=== PATIENT | male | born 1980 | race American Indian/Alaskan Native ===

== ENCOUNTER 2018-09-24 01:21 | Inpatient (IN) | payer MEDICAID ==
--- NOTE | 2018-09-24 02:12 | C.PDOC ---
History Of Present Illness 37 year old male presents to the ED c/o feeling depressed associated with SI with a plan for the past couple months. Patient reports symptoms worsened today. Patient had a plan to overdose with heroin. Patient has prior history of heroin, cocaine and alcohol abuse. Patient reports having previous suicide attempt. Patient denies HI, hallucinations, injury, fall, trauma. Time Seen by Provider: 09/24/18 01:48 Chief Complaint (Nursing): Psychiatric Evaluation History Per: Patient History/Exam Limitations: no limitations Onset/Duration Of Symptoms: Days Current Symptoms Are (Timing): Still Present Suicide/Self Injury Attempted (Context): Ingestion Modifying Factor(s): Alcohol, Narcotics, Cocaine Associated Symptoms: Depression, Suicidal Thoughts, Suicidal Plan Recent travel outside of the [place]: No Additional History Per: Patient Past Medical History Reviewed: Historical Data, Nursing Documentation, Vital Signs Vital Signs: Last Vital Signs Temp 98.6 F 09/24/18 01:38 Pulse 79 09/24/18 01:38 Resp 20 09/24/18 01:38 BP 122/79 09/24/18 01:38 Pulse Ox 100 09/24/18 01:38 - Medical History PMH: Depression Surgical History: No Surg Hx Family History: States: Unknown Family Hx - Social History Hx Alcohol Use: No Hx Substance Use: No - Immunization History Hx Tetanus Toxoid Vaccination: No Hx Influenza Vaccination: No Review Of Systems Constitutional: Negative for: Fever, Chills Eyes: Negative for: Vision Change Cardiovascular: Negative for: Chest Pain Respiratory: Negative for: Cough, Shortness of Breath Gastrointestinal: Negative for: Nausea, Vomiting, Abdominal Pain Skin: Negative for: Rash Neurological: Negative for: Weakness, Numbness Psych: Positive for: Depression, Suicidal ideation Physical Exam - Physical Exam Appears: Non-toxic, No Acute Distress, Other (flat affect) Skin: Normal Color, Warm, Dry Head: Atraumatic, Normacephalic Eye(s): bilateral: Normal Inspection Neck: Normal ROM, Supple Chest: Symmetrical Cardiovascular: Rhythm Regular Respiratory: Normal Breath Sounds, No Rales, No Rhonchi, No Wheezing Gastrointestinal/Abdominal: Soft, No Tenderness, No Guarding, No Rebound Extremity: Normal ROM, No Tenderness, No Swelling Neurological/Psych: Oriented x3, Normal Speech, Normal Cognition Gait: Steady ED Course And Treatment - Laboratory Results Result Diagrams: 09/24/18 02:12 09/24/18 02:12 O2 Sat by Pulse Oximetry: 100 (ON RA) Pulse Ox Interpretation: Normal Progress Note: Plan: - Labs. - UA. - Crisis evala. Patient was medically cleared, seen by crisis. Patient was admitted under Dr. Hopkins. 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 - Scribe Statement The provider has reviewed the documentation as recorded by the Scribe Parrish Mcneill All medical record entries made by the Scribe were at my direction and personally dictated by me. I have reviewed the chart and agree that the record accurately reflects my personal performance of the history, physical exam, medical decision making, and the department course for this patient. I have also personally directed, reviewed, and agree with the discharge instructions and disposition. Decision To Admit - Pt Status Changed To: Hospital Disposition Of: Inpatient - Admit Certification Admit to Inpatient:: After my assessment, the patient will require hospitalization for at least two midnights. This is because of the severity of symptoms shown, intensity of services needed, and/or the medical risk in this patient being treated as an outpatient. - InPatient: Physician Admission Certification: I certify that this patient requires 2 or more midnights of care for the following reason:: will need more than 2 days of admission - . Bed Request Type: Detox Admitting Physician: Shivam Hopkins Patient Diagnosis: Alcohol abuse, Opiate dependence, Cocaine abuse, Depression
[2018-09-24 02:16] LABS: BASO # 0.1 K/uL (0.0-0.2); BASO % 0.9 % (0.0-2.0); EOS # 0.2 K/uL (0.0-0.7); EOS % 2.3 % (0.0-4.0); HEMOGLOBIN 13.9 g/dL (12.0-18.0); LYMPH # 2.7 K/uL (1.0-4.3); LYMPH % 36.5 % (20.0-40.0); MEAN CELL VOLUME 86.9 fL (80.0-94.0); MEAN CORPUSCULAR HEMOGLOBIN 28.5 pg (27.0-31.0); MEAN CORPUSCULAR HGB CONC 32.8 g/dL (33.0-37.0); MEAN PLATELET VOLUME 9.1 fL (7.2-11.7); MONO # 1.1 K/uL (0.0-0.8); MONO % 14.2 % (0.0-10.0); NEUT # 3.4 K/uL (1.8-7.0); NEUT % 46.1 % (50.0-75.0); NRBC % 0.1 % (0.0-2.0); RBC 4.89 Mil/uL (4.40-5.90); RED CELL DISTRIBUTION WIDTH 14.6 % (11.5-14.5); WHITE BLOOD COUNT 7.4 K/uL (4.8-10.8)
[2018-09-24 02:20] LABS: SQUAMOUS EPITHIAL < 1 /hpf (0-5); URINE AMORPHOUS SEDIMENT RARE /ul (<OCC); URINE BACTERIA RARE (<OCC); URINE BILIRUBIN NEGATIVE (NEGATIVE); URINE BLOOD NEGATIVE (NEGATIVE); URINE CLARITY Clear (Clear); URINE COLOR Yellow (YELLOW); URINE GLUCOSE (UA) NORMAL (Normal); URINE LEUKOCYTE ESTERASE NEG Leu/uL (Negative); URINE PROTEIN 1+ mg/dL (NEGATIVE)
[2018-09-24 02:28] LABS: ALB/GLOB RATIO 1.3 (1.0-2.1); ALBUMIN 4.2 g/dL (3.5-5.0); ALT/SGPT 150 U/L (21-72); AST/SGOT 211 U/L (17-59); BLOOD UREA NITROGEN 13 mg/dL (9-20); CALCIUM 8.9 mg/dl (8.6-10.4); GFR NON-AFRICAN AMERICAN > 60
[2018-09-24 02:31] LABS: BARBITURATES, UR NEGATIVE (NEGATIVE); BENZODIAZEPINES, UR NEGATIVE (NEGATIVE); PHENCYCLIDINE, UR NEGATIVE (NEGATIVE)
[2018-09-24 02:33] LABS: OPIATES, UR POSITIVE (NEGATIVE)
[2018-09-24 03:45] VITALS: RESP 18
--- NOTE | 2018-09-24 04:19 | PCM.BM ---
<David Herrera - Last Filed: 09/24/18 04:18> Treatment Plan Problems - Problems identified on initial assessmt potential for opiates withdrawal Date Initiated: 09/24/18 Time Initiated: 04:19 Assessment reference: NA Status: Active Treatment assets and liabiliti Patient Assests: cooperative, ADL independent, negotiates basic needs, cognitively intact Patient Liabilities: substance abuse - Milieu Protocol Maintain good personal hygiene: daily Encourage regular showers, daily Remind patient to perform daily oral care, daily Assist patient to perform ADL's Maintain personal safety: every shift Educate patient to report safety concerns to staff, every shift Monitor environment for contraband/sharps Medication safety: Monitor for expected outcome, potential side effects: every shift, Assess barriers to learning: every shift, Assess readiness for medication education: every shift <Scotty Saunders - Last Filed: 09/25/18 14:08> - Diagnosis (1) Opiate dependence Status: Acute Interventions: 09/24/18 14:08 * Assess 7x/week regarding severity of withdrawal * Educate regarding risks, benefits, side effects and alternatives of medications * Use Motivational Interviewing for abstinence * Use CBT for relapse prevention * Medication management for withdrawal symptoms * Encourage medication assisted treatment *
--- NOTE | 2018-09-24 13:36 | PCM.PSYCH ---
Initial Psychiatric Evaluation - Initial Psychiatric Evaluation Type of Admission: Voluntary Legal Status: Capacity Chief Complaint (in patient's own words): "I need detox" History of Present Illness and Precipitating Events: Patient seen, chart reviewed, case discussed Patient is a 37-year-old single, unemployed -[place] male with no children who lives with a friend. The patient started using injecting heroin and smoking cocaine 10 years ago. The patient uses 10 bags of heroin and one $20 bag of cocaine per day and his last use was yesterday. The patient denies the use alcohol, marijuana, or other pills but has smoked 1 pack per day for the past 5 years. The patient has been to detox 6-7 times and rehab 2-3 times in the past. The patient was treated with Narcan for an overdose in 2017. The patient denies any family history of alcohol or drug use. The patient attempted to commit suicide one year ago and was hospitalized for a few weeks. The patient has felt depressed for the past month and contemplated suicide one week ago but currently denies any suicidal ideations. It is not clear if he had attempted or not 1 week ago, but he now agrees to follow safety plan. Past Psych History: Depression with SI Past Medical History: Hepatitis C - got treatment Family Psych History: denies Current Medications: Active Medications Generic Name Dose Route Start Last Admin Trade Name Freq PRN Reason Stop Dose Admin Clonidine HCl 0.1 mg 09/24/18 03:53 Catapres PO Q6 PRN withdrawal symptoms Dicyclomine HCl 10 mg 09/24/18 05:27 Bentyl PO Q6 PRN Muscle spasm Hydroxyzine HCl 25 mg 09/24/18 03:52 Atarax PO Q6 PRN Anxiety Ibuprofen 600 mg 09/24/18 05:26 Motrin Tab PO Q6 PRN Pain, moderate (4-7) Mirtazapine 15 mg 09/24/18 22:00 Remeron PO HS KARLA Trazodone HCl 50 mg 09/24/18 05:25 Desyrel PO HS PRN Insomnia Past Psychiatric History - Past Psychiatric History Previous Treatment History: Intensive Outpatient Pertinent Medical Hx (Current Medical&Sleep Prob, Allergies): Allergies Allergy/AdvReac Type Severity Reaction Status Date / Time No Known Allergies Allergy Verified 09/24/18 01:36 No Known Home Med 11/23/16 Review of Systems - Neurological Neurological: UNREMARKABLE - Psychiatric Psychiatric: Abnormal Sleep Pattern, Anhedonia, Anxiety, Depression (mild to moderate), Difficulty Concentrating. absent: Hallucinations, Homicidal Ideation, Paranoia, Suicidal Ideation Mental Status Examination - Personal Presentation Personal Presentation: Looks stated age - Affect Affect: Constricted - Motor Activity Motor Activity: Calm - Reliability in Providing Information Reliability in Providing Information: Good - Speech Speech: Organized - Mood Mood: Depressed (mild), Anxious - Formal Thought Process Formal Thought Process: No Impairment - Cognitive Functions Orientation: Person, Place, Situation, Time Sensorium: Alert Attention/Concentration: Attentive Estimate of Intelligence: Average Judgement: Intact, as evidence by: Insight regarding need for hospitalization Memory: Recent intact, as evidence by: Ability to recall events of the day, Remote intact, as evidenced by: Abilit to recall sig. life events - Risk Risk: Withdrawal, Diminished functioning - Strength & Assets Inventory Strength & Assets Inventory: Cooperative - Limitations Limitations: Living alone DSM 5 DX - DSM 5 DSM 5 Diagnosis: Opioid withdrawal Opioid use d/osevere Cocaine use d/osevere Major Depression - moderate r/o severe - Recommended/Plan of Treatment Treatment Recommendations and Plan of Treatment: Taper with subutex Remeron for depression Gabapentin for augmentation if needed As needed medication All risks, benefits and alternatives of the meds discussed and the patient agreed and understood Attend groups and activities Supportive therapy and psychoeducation [place] for abstinence CBT for relapse prevention Encourage MAT Refer to rehab or IOP, and self-help groups Teach healthy lifestyle methods, i.e. diet, exercise, meditation Smoking cessation with [place] Nicotine patch if needed 33 min Projected ELOS: 4 days
[2018-09-24] MEDS ORDERED: Buprenorphine Hydrochloride 2 mg SL ONE ×2 (14:34→15:35)
[2018-09-24] MEDS ORDERED: Vitamins A & D Oint UD Foilpak TOP PRN (16:18)
[2018-09-25] MEDS ORDERED: Buprenorphine Hydrochloride 2 mg SL SCH (10:00)
--- NOTE | 2018-09-25 14:09 | PCM.PYCHPN ---
Psychiatric Progress Note - Psychiatric Progress Note Patient Chief Complaint: "I need detox" Medication Change: Yes Medical Record Reviewed: Yes Mental Status Examination - Cognitive Function Orientation: Person, Place, Situation, Time - Mood Mood: Depressed (mild), Anxious - Affect Affect: Constricted - Formal Thought Process Formal Thought Process: No Impairment - Homicidal Ideation Homicidal Ideation: No Goal/Treatment Plan - Goal/Treatment Plan Progress Toward Problem(s) and Goals/Treatment Plan: Taper with subutex Remeron for depression Gabapentin for augmentation if needed As needed medication All risks, benefits and alternatives of the meds discussed and the patient agreed and understood Attend groups and activities Supportive therapy and psychoeducation [place] for abstinence CBT for relapse prevention Encourage MAT Refer to rehab or IOP, and self-help groups Teach healthy lifestyle methods, i.e. diet, exercise, meditation Smoking cessation with [place] Nicotine patch if needed 33 min
[2018-09-25 17:07] VITALS: BP 124/81; PULSE 72; TEMP 98.4; O2SAT 99
== END 2018-09-25 18:15 | disposition left against medical advice (07) | DRG 743 ==
LOC: C.ER 01:21 → C.7D 03:20
PROC: HZ2ZZZZ Detoxification Services for Substance Abuse Treatment (ICD-10-PCS; principal; 2018-09-24)
PROC: HZ52ZZZ Individual Psychotherapy for Substance Abuse Treatment, Cognitive-Behavioral (ICD-10-PCS; 2018-09-24)
PROC: GZHZZZZ Group Psychotherapy (ICD-10-PCS; 2018-09-24)
PROC: HZ59ZZZ Individual Psychotherapy for Substance Abuse Treatment, Supportive (ICD-10-PCS; 2018-09-24)
PROC: HZ56ZZZ Individual Psychotherapy for Substance Abuse Treatment, Psychoeducation (ICD-10-PCS; 2018-09-24)
PROC: HZ42ZZZ Group Counseling for Substance Abuse Treatment, Cognitive-Behavioral (ICD-10-PCS; 2018-09-24)
PROC: HZ46ZZZ Group Counseling for Substance Abuse Treatment, Psychoeducation (ICD-10-PCS; 2018-09-24)
PROC: GZ58ZZZ Individual Psychotherapy, Cognitive-Behavioral (ICD-10-PCS; 2018-09-24)
PROC: GZ56ZZZ Individual Psychotherapy, Supportive (ICD-10-PCS; 2018-09-24)
DX: F11.23 Opioid dependence with withdrawal (principal); F32.2 Major depressive disorder, single episode, severe without psychotic features; F14.20 Cocaine dependence, uncomplicated; R45.851 Suicidal ideations; F10.20 Alcohol dependence, uncomplicated; Y90.0 Blood alcohol level of less than 20 mg/100 ml; F17.210 Nicotine dependence, cigarettes, uncomplicated; Z86.19 Personal history of other infectious and parasitic diseases